=== PATIENT | male | born 1985 | race American Indian/Alaskan Native ===

== ENCOUNTER 2017-02-24 11:22 | Emergency (ER) | payer OTHER ==
[2017-02-24 11:43] VITALS: BP 127/90
[2017-02-24] MEDS ORDERED: KEFLEX PO ONE ×2 (13:14→14:00)
--- NOTE | 2017-02-24 13:14 | Emergency Department Report ---
Minor Respiratory - HPI Chief Complaint: Dental/Oral Stated Complaint: R EAR PAIN Time Seen by Provider: 02/24/17 13:11 Duration: 2 Days Pain Location: Ear (R) Severity: moderate Minor Respiratory: Yes Rhinorrhea, Yes Able to Tolerate Fluids, Yes Ear Pain, No Sore Throat, No Cough, No Sick Contacts, No Hemoptysis, No Chest Pain, No Shortness of Breath, No Fever ED Review of Systems ROS: Stated complaint: RIGHT SIDE FACIAL PAIN Other details as noted in HPI Comment: All other systems reviewed and negative Constitutional: denies: fever, malaise ENT: ear pain, congestion (SINUS) Respiratory: no symptoms reported ED Past Medical Hx - Past Medical History Previous Medical History?: Yes Hx Asthma: Yes - Surgical History Past Surgical History?: Yes Additional Surgical History: T/A LAST YEAR - Social History Smoking Status: Current Every Day Smoker Substance Use Type: Alcohol, Marijuana - Medications Home Medications: Home Medications Medication Instructions Recorded Confirmed Last Taken Type ALBUTEROL Inhaler [ProAir HFA 2 puff IH QID PRN #1 inhalation 02/24/17 Unknown Rx Inhaler] Cephalexin [Keflex] 500 mg PO Q12HR #20 cap 02/24/17 Unknown Rx Minor Respiratory Exam - Exam General: Vital signs noted. No distress. Alert and acting appropriately. HEENT: Yes Moist Mucous Membranes, No Pharyngeal Erythema, No Pharyngeal Exudates, No Rhinorrhea, No Conjuctival Injection, No Frontal Tenderness, No Maxillary Tenderness Ear: Right TM Erythema, Right EAC Discharge (WAX) Neck: Yes Supple, No Adenopathy Lungs: Yes Good Air Exchange, No Wheezes, No Ronchi, No Stridor, No Cough, No Labored Respirations, No Retractions, No Use of Accessory Muscles, No Other Abnormal Lung Sounds Heart: Yes Regular, No Murmur Abdomen: Yes Normal Bowel Sounds, No Tenderness, No Peritoneal Signs Skin: No Rash, No Edema Neurologic: Alert and oriented, no deficits. Musculoskeletal: Unremarkable. ED Course Vital Signs 02/24/17 11:40 Temperature 99 F Pulse Rate 78 Respiratory 20 Rate Blood Pressure 127/90 O2 Sat by Pulse 98 Oximetry - Reevaluation(s) Reevaluation #1: 02/24/17 13:46 TO ER W R EAR PAIN A/C SINUS AND TONSIL PROBLEMS SOUNDS NASALLY CONGESTED NO CARIES THROAT WNL R EAR RED W A LOT OF CERUMEN Reevaluation #2: 02/24/17 13:49 MEDICATED HERE IN ER AND MONITORED GIVEN ALLERGY TO AMOX ED Medical Decision Making - Medical Decision Making SEE NOTE - Differential Diagnosis DENTAL V TMJ V OM Critical care attestation.: If time is entered above; I have spent that time in minutes in the direct care of this critically ill patient, excluding procedure time. ED Disposition Clinical Impression: Otitis media, Sinusitis, Excessive cerumen in right ear canal, Medication refill Disposition: TO HOME OR SELFCARE Is pt being admited?: No Does the pt Need Aspirin: No Condition: Stable Instructions: Sinusitis (ED), Cerumen Impaction (ED) Additional Instructions: REST FLUIDS NOTHING IN EAR NO QTIPS ONCE OVER ILLNESS YOU CAN USE OVER THE COUNTER DEBROX TO KEEP WAX FROM BUILDING UP. FOLLOW UP PCP OR ENT FOR REEVALUATION YOUR SINUS MAY HAVE BEEN YOUR PROBLEM NOT YOUR TONSILS MOTRIN OR TYLENOL FOR PAIN OR FEVER TAKE MEDS UNTIL GONE Prescriptions: ALBUTEROL Inhaler [ProAir HFA Inhaler] 2 puff IH QID PRN #1 inhalation PRN Reason: Shortness Of Breath Cephalexin [Keflex] 500 mg PO Q12HR #20 cap Referrals: PRIMARY CARE, [Primary Care Provider] - 3-5 Days JUSTIN CAMPOS MD [Staff Physician] - 3-5 Days Time of Disposition: 13:48
== END 2017-02-24 14:29 | disposition home or self-care (01) ==
LOC: ED 11:22
DX: H66.91 Otitis media, unspecified, right ear (principal); J32.9 Chronic sinusitis, unspecified; F17.200 Nicotine dependence, unspecified, uncomplicated; F12.10 Cannabis abuse, uncomplicated
CPT/HCPCS: 99282

== ENCOUNTER 2017-03-06 18:50 | Emergency (ER) | payer OTHER | END 2017-03-06 21:27 | disposition left against medical advice (07) | LOC: ED 18:50 | DX: H92.01 Otalgia, right ear (principal); Z53.21 Procedure and treatment not carried out due to patient leaving prior to being seen by health care provider ==

== ENCOUNTER 2017-03-17 13:26 | Emergency (ER) | payer OTHER ==
[2017-03-17 13:40] VITALS: BP 119/85
== END 2017-03-17 14:18 | disposition left against medical advice (07) ==
LOC: ED 13:26
DX: M79.671 Pain in right foot (principal); Z53.21 Procedure and treatment not carried out due to patient leaving prior to being seen by health care provider

== ENCOUNTER 2017-03-19 12:54 | Emergency (ER) | payer OTHER ==
[2017-03-19 13:18] VITALS: BP 166/84
--- NOTE | 2017-03-19 14:11 | Emergency Department Report ---
ED ENT HPI - General Chief complaint: Earache Stated complaint: EAR PAIN Time Seen by Provider: 03/19/17 13:25 Source: patient Mode of arrival: Ambulatory Limitations: No Limitations - History of Present Illness Initial comments: This is a 31-year-old male nontoxic, well nourished in appearance, no acute signs of distress presents to the ED with c/o of right earache x1 week. Patient stated he had an earache and was diagnosed with otitis media in February 2017 and symptoms resolved but returned. Patient denies any trauma to the region. Denies any hearing loss, decreased hearing, mastoid tenderness, tragus pain, fever, chills, headache, nausea, vomiting, dizziness, chest pain, or shortness of breathe. Patient states allergies to PCN. PMH includes Asthma. MD complaint: ear pain -: Gradual, week(s) (1) Location: R ear Severity: mild Severity scale (0 -10): 8 Quality: aching Consistency: constant Improves with: none Worsens with: none Associated Symptoms: denies: fever, cough, gum swelling, toothache, pain with swallowing, sore throat, tinnitus, hearing loss, discharge from ear, rhinorrhea - Related Data Previous Rx's Medication Instructions Recorded Last Taken Type ALBUTEROL Inhaler [ProAir HFA 2 puff IH QID PRN #1 inhalation 02/24/17 Unknown Rx Inhaler] Cephalexin [Keflex] 500 mg PO Q12HR #20 cap 02/24/17 Unknown Rx Azithromycin [Zithromax Z-KEYONNA] 250 mg PO DAILY #6 tablet 03/19/17 Unknown Rx Ofloxacin 0.3% [Floxin Otic] 5 drops OT DAILY 7 Days bottle 03/19/17 Unknown Rx Allergies Allergy/AdvReac Type Severity Reaction Status Date / Time amoxicillin Allergy Rash Verified 02/24/17 11:43 ED Dental HPI - General Chief complaint: Earache Stated complaint: EAR PAIN Time Seen by Provider: 03/19/17 13:25 Source: patient Mode of arrival: Ambulatory Limitations: No Limitations - Related Data Previous Rx's Medication Instructions Recorded Last Taken Type ALBUTEROL Inhaler [ProAir HFA 2 puff IH QID PRN #1 inhalation 02/24/17 Unknown Rx Inhaler] Cephalexin [Keflex] 500 mg PO Q12HR #20 cap 02/24/17 Unknown Rx Azithromycin [Zithromax Z-KEYONNA] 250 mg PO DAILY #6 tablet 03/19/17 Unknown Rx Ofloxacin 0.3% [Floxin Otic] 5 drops OT DAILY 7 Days bottle 03/19/17 Unknown Rx Allergies Allergy/AdvReac Type Severity Reaction Status Date / Time amoxicillin Allergy Rash Verified 02/24/17 11:43 ED Review of Systems ROS: Stated complaint: EAR PAIN Other details as noted in HPI Constitutional: denies: chills, fever Eyes: denies: eye pain, eye discharge, vision change ENT: denies: ear pain, throat pain Respiratory: denies: cough, shortness of breath, wheezing Cardiovascular: denies: chest pain, palpitations Endocrine: no symptoms reported Gastrointestinal: denies: abdominal pain, nausea, diarrhea Genitourinary: denies: urgency, dysuria Musculoskeletal: denies: back pain, joint swelling, arthralgia Skin: denies: rash, lesions Neurological: denies: headache, weakness, paresthesias Psychiatric: denies: anxiety, depression Hematological/Lymphatic: denies: easy bleeding, easy bruising ED Past Medical Hx - Past Medical History Hx Asthma: Yes - Surgical History Past Surgical History?: No Additional Surgical History: T/A LAST YEAR - Social History Smoking Status: Current Every Day Smoker Substance Use Type: Alcohol - Medications Home Medications: Home Medications Medication Instructions Recorded Confirmed Last Taken Type ALBUTEROL Inhaler [ProAir HFA 2 puff IH QID PRN #1 inhalation 02/24/17 Unknown Rx Inhaler] Cephalexin [Keflex] 500 mg PO Q12HR #20 cap 02/24/17 Unknown Rx Azithromycin [Zithromax Z-KEYONNA] 250 mg PO DAILY #6 tablet 03/19/17 Unknown Rx Ofloxacin 0.3% [Floxin Otic] 5 drops OT DAILY 7 Days bottle 03/19/17 Unknown Rx ED Physical Exam - General Limitations: No Limitations General appearance: alert, in no apparent distress - Head Head exam: Present: atraumatic, normocephalic, normal inspection - Eye Eye exam: Present: normal appearance, PERRL, EOMI. Absent: scleral icterus, conjunctival injection, nystagmus, periorbital swelling, periorbital tenderness Pupils: Present: normal accommodation - ENT ENT exam: Present: normal exam, normal orophraynx, mucous membranes moist, normal external ear exam - Expanded ENT Exam Expanded Ear exam: Present: normal external inspection TM/Canal exam: Erythema: Right TM, Bulging: Right TM Mouth exam: Present: normal external inspection, tongue normal. Absent: drooling, trismus, muffled voice, tongue elevation, laceration Teeth exam: Present: normal inspection Throat exam: Positive: normal inspection. Negative: tonsillar erythema, tonsillomegaly, tonsillar exudate, R peritonsillar mass, L peritonsillar mass - Neck Neck exam: Present: normal inspection, full ROM. Absent: tenderness, meningismus, lymphadenopathy, thyromegaly - Respiratory Respiratory exam: Present: normal lung sounds bilaterally. Absent: respiratory distress, wheezes, rales, rhonchi, stridor, chest wall tenderness, decreased breath sounds, prolonged expiratory - Cardiovascular Cardiovascular Exam: Present: regular rate, normal rhythm, normal heart sounds. Absent: irregular rhythm, systolic murmur, diastolic murmur, rubs, gallop - GI/Abdominal GI/Abdominal exam: Present: soft, normal bowel sounds. Absent: distended, tenderness, guarding, rebound, rigid, diminished bowel sounds - Rectal Rectal exam: Present: deferred - Extremities Exam Extremities exam: Present: normal inspection, full ROM, normal capillary refill. Absent: tenderness, pedal edema, joint swelling, calf tenderness - Back Exam Back exam: Present: normal inspection, full ROM. Absent: tenderness, CVA tenderness (R), CVA tenderness (L), muscle spasm, paraspinal tenderness, vertebral tenderness, rash noted - Neurological Exam Neurological exam: Present: alert, oriented X3, CN II-XII intact, normal gait, reflexes normal - Psychiatric Psychiatric exam: Present: normal affect, normal mood - Skin Skin exam: Present: warm, dry, intact, normal color. Absent: rash - Other Other exam information: No mastoid tenderness. No tragus pain. ED Course Vital Signs 03/19/17 13:15 Temperature 98.2 F Pulse Rate 91 H Respiratory 16 Rate Blood Pressure 166/84 O2 Sat by Pulse 98 Oximetry - Reevaluation(s) Reevaluation #1: 03/19/17 14:22 Patient is speaking in full sentences with no signs of distress. Critical care attestation.: If time is entered above; I have spent that time in minutes in the direct care of this critically ill patient, excluding procedure time. ED Disposition Clinical Impression: Otitis media Qualifiers: Otitis media type: unspecified Laterality: right Qualified Code(s): H66.91 - Otitis media, unspecified, right ear Disposition: TO HOME OR SELFCARE Is pt being admited?: No Does the pt Need Aspirin: No Condition: Stable Instructions: Otitis Media (ED), Azithromycin (By mouth), Ofloxacin (Into the ear) Additional Instructions: Follow-up with a primary care doctor in 3-5 days or if symptoms worsen and continue return to emergency room as soon as possible. Prescriptions: Azithromycin [Zithromax Z-KEYONNA] 250 mg PO DAILY #6 tablet Ofloxacin 0.3% [Floxin Otic] 5 drops OT DAILY 7 Days bottle Referrals: PRIMARY CARE, [Primary Care Provider] - 3-5 Days ENEIDA MCGARRY MD [Staff Physician] - 3-5 Days [facility] [Outside] - 3-5 Days [facility] [place] [Outside] - 3-5 Days Forms: Work/School Release Form(ED)
== END 2017-03-19 15:03 | disposition home or self-care (01) ==
LOC: ED 12:54
DX: H66.91 Otitis media, unspecified, right ear (principal); F17.200 Nicotine dependence, unspecified, uncomplicated; J45.909 Unspecified asthma, uncomplicated; Z88.1 Allergy status to other antibiotic agents
CPT/HCPCS: 99282